=== PATIENT | male | born 1985 | race Caucasian/White ===

== ENCOUNTER 2017-02-03 22:05 | Emergency (ER) | payer OTHER ==
[2017-02-03 22:10] VITALS: TEMP 98.8
--- NOTE | 2017-02-03 23:28 | EDPHY ---
H & P Stated Complaint: struck in face with softball Source: Patient, Family Exam Limitations: No limitations - Personal History Current Tetanus/Diphtheria Vaccine: Yes Tetanus Vaccine Date: 2013 - Medical/Surgical History Hx Asthma: Yes Hx Chronic Respiratory Disease: No Hx Diabetes: No Hx Cardiac Disease: No Hx Renal Disease: No Hx Cirrhosis: No Hx Alcoholism: No Hx HIV/AIDS: No Hx Splenectomy or Spleen Trauma: No Other PMH: PSHx: adenoids, sinus, hernia. PMHx: denies - Social History Smoking Status: Never smoked Time Seen by Provider: 02/03/17 22:44 HPI/ROS: CHIEF COMPLAINT: dental injury HISTORY OF PRESENT ILLNESS: 31-year-old male presents emergency department with dental trauma. Patient was struck in the face with a softball today. No loss of consciousness, remembers the entire accident, no neck pain. Patient denies jaw pain with opening and closing of his mouth. He reports his teeth are loose on the bottom and his top front right tooth is loose. Pt denies other complaints. No headache, nausea, blurred vision. REVIEW OF SYSTEMS: A comprehensive 10 point review of systems is otherwise negative aside from elements mentioned in the history of present illness. (Kathy Gold) - Physical Exam Exam: General Appearance: Alert, no distress, talking appropriately, comfortable. Head: Atraumatic without scalp tenderness. The top right front incisor displaced, bottom front 4 teeth displaced posteriorly, no mandibular or maxillary tenderness to palpation, no TMJ tenderness, multiple superficial lacerations to inside lower lip Eyes: Pupils equal, round, reactive to light, EOMI, no trauma, no injection. Ears: Clear bilaterally, no perforation, no hemotympanum Nose: Atraumatic, no rhinorrhea, no septal hematoma Neck: The cervical spine is non-tender and there is no pain or neurologic deficits with active range of motion. Cardiovascular: Heart is regular rate and rhythm without murmur. Good capillary refill all extremities. Chest: Atraumatic, equal bilateral breath sounds. Chest is non-tender to palpation. Gastrointestinal: Soft, non-tender, non-distended. No rebound, guarding, or peritoneal signs. There is no evidence of external or internal trauma. Back:There is no thoracic or lumbar spine or paraspinal tenderness. Extremities: All extremities are non-tender to palpation without obvious deformity. There is full active range of motion of the joints. Neurological: The patient has normal DTRs and non-focal Cranial nerves, motor, sensory, and cerebellar exam (Kathy Gold) Constitutional: Initial Vital Signs Temperature (C) 37.1 C 02/03/17 22:07 Heart Rate 67 02/03/17 22:07 Respiratory Rate 14 02/03/17 22:07 Blood Pressure 117/77 02/03/17 22:07 O2 Sat (%) 96 02/03/17 22:07 O2 Delivery Mode Room Air Allergies/Adverse Reactions: No Known Allergies Allergy (Unverified 02/03/17 22:07) Home Medications: Medication Instructions Recorded NK [No Known Home Meds] 02/03/17 Medical Decision Making - Diagnostics Imaging: Discussed imaging studies w/ fisher scallop Radiologist - Diagnostics Imaging Results: Impression: 1. Loosening around the roots of the teeth off the mandibular arch and maxillary arch as detailed above. 2. No evidence of facial bone fracture. Findings discussed with Kathy Gold NP at 23:52 hour, 02/03/2017. Dictated By: Rahul Morillo MD (Kathy Gold) Procedures: Dental block- Bilateral mental block performed with 1% lidocaine without epinephrine, 1 mL injected on right and 1 mL on left. Patient tolerated this well with good anesthesia. Tooth reduction- Bottom front teeth reduced manually, splint placed to front of teeth secured with dental cement. (Kathy Gold) ED Course/Re-evaluation: 31-year-old male presents with dental trauma after softball injury to face. CT maxillofacial without contrast obtained showing no maxillary or mandibular fractures. Mental block performed and lower front teeth reduced and splinted without difficulty. The patient has a normal neuro exam. He is discharged home with a prescription for Hodges, instructed to eat a liquid diet and follow up with Oral surgery tomorrow. Patient and family are comfortable with this plan. They are given return precautions for any worsening symptoms, new symptoms or concerns. (Kathy Gold) Differential Diagnosis: The differential diagnosis for the patient's head injury included but was not limited to concussion, skull fracture, intra-parenchymal contusion, subarachnoid , subdural and epidural hematoma. (Kathy Gold) Other Provider: ED PA DICTATION I evaluated and participated in the management of the patient. I also evaluated the patient independently. My co-signature indicates that I have reviewed this chart and I agree with the findings and plan of care as documented. My personal H&P findings include: This is a 31-year-old male with injury to his teeth. I examined the patient myself and concur her with the PAs exam. CT scan was performed. (Jordyn Sanders) - Data Points Medications Given: Discontinued Medications Hydrocodone Bitart/Acetaminophen (Hodges 5/325mg Prepack#6) 1 btl TAKEHOME EDNOW ONE Stop: 02/04/17 00:54 Last Admin: 02/04/17 01:13 Dose: 1 btl Departure - Departure Disposition: Home, Routine, Self-Care Clinical Impression: Dental trauma, Minor head injury without loss of consciousness Condition: Good Instructions: Hydrocodone/Acetaminophen (By mouth), Head Injury (ED), Acute Dental Trauma (ED) Additional Instructions: Take 600 mg of ibuprofen every 8 hours as needed for pain, take Hodges for severe pain. Liquid diet only until follow-up with dentist. Follow up with oral surgeon tomorrow. Call 1st thing in the morning to schedule this appointment. Return to the emergency department for pain that is not controlled, new symptoms or concerns. Return to the emergency department for any forceful vomiting, confusion, difficulty walking, seizures. Referrals: Stormy Bennett MD [Medical Doctor] - As per Instructions Matthew Ramos DDS [Doctor of Dental Surgery] - As per Instructions Jame Ramos DDS [Doctor of Dental Surgery] - As per Instructions Tomasz Antonio DDS [Doctor of Dental Surgery] - As per Instructions
[2017-02-04] MEDS ORDERED: HYDROCOD/APAP 5/325 PREPACK#6 BTL TAKEHOME ONE (00:53)
[2017-02-04 01:16] VITALS: BP 123/76; PULSE 71; RESP 18; O2SAT 94
== END 2017-02-04 01:16 | disposition home or self-care (01) ==
PROC: 3E0X3BZ Introduction of Anesthetic Agent into Cranial Nerves, Percutaneous Approach (ICD-10-PCS; principal; 2017-02-03)
DX: S09.93XA Unspecified injury of face, initial encounter (principal); J45.909 Unspecified asthma, uncomplicated; W21.07XA Struck by softball, initial encounter